=== PATIENT | male | born 1955 | race Caucasian/White ===

== ENCOUNTER 2019-05-25 12:43 | Outpatient (CLI) | payer MEDICAID ==
[~2019-05-25 12:43] MED LIST: LIDOCAINE 1%, 10ML ONE
== END 2019-05-25 23:59 | disposition home or self-care (01) ==
LOC: RAD 12:43
PROVIDERS: ATTEND Internal Medicine Hematology & Oncology
DX: D72.819 Decreased white blood cell count, unspecified (principal); R59.1 Generalized enlarged lymph nodes
CPT/HCPCS: 38505; 76942; 88305; J3490